=== PATIENT | male | born 1950 | race Caucasian/White ===

== ENCOUNTER → 2021-10-13 | Outpatient (CLI) | payer BC, OTHER ==
[~2021-10-13] MED LIST: AMLO1TAB24 PO; ATEN50TA2 PO; CYAN500T14 PO; D 50CAP2 PO; GLUC1CAP10 PO; GNP1000C11 PO; LOSA50TA28 PO; NEXI20CA PO; POTA-149 PO; VITA100065 PO
[2021-10-13 13:22] LABS: BASO # 0.1 10^3/uL (0.0-0.2); BASO % 1.9 % (0.0-1.0); EOS # 0.3 10^3/uL (0.0-0.5); EOS % 3.4 % (0.0-3.0); HEMATOCRIT 34.5 % (42.0-52.0); HEMOGLOBIN 10.5 g/dl (13.5-17.5); LYMPH # 1.6 10^3/uL (1.5-5.0); LYMPH % 21.2 % (24.0-44.0); MEAN CORPUSCULAR HEMOGLOBIN 28.6 pg (27.0-33.0); MEAN CORPUSCULAR HGB CONC 30.4 g/dl (32.0-36.5); MONO # 0.5 10^3/uL (0.0-0.8); MONO % 7.3 % (2.0-8.0); NEUTROPHILS # 4.7 10^3/uL (1.5-8.5); NEUTROPHILS % 64.3 % (36.0-66.0); PLATELET COUNT, AUTOMATED 106 10^3/uL (150-450); RED BLOOD COUNT 3.67 10^6/uL (4.30-6.10); WHITE BLOOD COUNT 7.3 10^3/uL (4.0-10.0)
[2021-10-13 14:17] LABS: ALBUMIN 3.7 GM/DL (3.2-5.2); ALT/SGPT 56 U/L (12-78); BILIRUBIN,TOTAL 0.4 MG/DL (0.2-1.0); BLOOD UREA NITROGEN 20 MG/DL (7-18); C REACTIVE PROTEIN QUANTITATIV 1.14 MG/DL (0.00-0.30); CALCIUM LEVEL 8.7 MG/DL (8.8-10.2); CARBON DIOXIDE LEVEL 29 MEQ/L (21-32); CHLORIDE LEVEL 108 MEQ/L (98-107); CREATININE FOR GFR 0.97 MG/DL (0.70-1.30); FOLATE 14.3 NG/ML (>5.4); FREE T4 0.88 NG/DL (0.76-1.46); GLOMERULAR FILTRATION RATE > 60.0 (>42); GLUCOSE, FASTING 96 MG/DL (70-100); HEPATITIS B SURFACE ANTIBODY NEGATIVE (POSITIVE); LDH LACTATE DEHYDROGENASE 400 U/L (87-241); SODIUM LEVEL 142 MEQ/L (136-145); TOTAL PROTEIN 6.9 GM/DL (6.4-8.2); VITAMIN B12 LEVEL 920 PG/ML (247-911)
[2021-10-13 14:41] LABS: HEPATITIS C VIRUS ABY INDEX 0.2 INDEX (<0.8); HIV 1&2 SCREEN CENTAUR NEGATIVE (NEGATIVE)
[2021-10-14 13:11] LABS: ALBUMIN 3.95 GM/DL (3.29-5.55); ALBUMIN % 57.2 % (55.8-66.1); ALPHA-1-GLOBULIN % 5.1 % (2.9-4.9); ALPHA-1-GLOBULINS 0.35 GM/DL (0.17-0.41); ALPHA-2-GLOBULINS 0.84 GM/DL (0.42-0.99); ALPHA-2-GLOBULINS % 12.2 % (7.1-11.8); BETA-1-GLOBULINS 0.41 GM/DL (0.28-0.60); BETA-2-GLOBULINS 0.39 GM/DL (0.19-0.55); BETA-2-GLOBULINS % 5.6 % (3.2-6.5); GAMMA GLOBULIN % 13.9 % (11.1-18.8); GAMMA GLOBULINS 0.96 GM/DL (0.65-1.58)
[2021-10-14 18:19] LABS: FREE KAPPA LIGHT CHAINS SERUM 24.1 mg/L (3.3-19.4); FREE LAMBDA LIGHT CHAINS SERUM 19.4 mg/L (5.7-26.3); KAPPA/LAMBDA RATIO SERUM 1.24 (0.26-1.65)
== END ==
LOC: M PLALAB 09:16
PROVIDERS: ATTEND Internal Medicine Hematology
DX: D61.89 Other specified aplastic anemias and other bone marrow failure syndromes (principal); D69.6 Thrombocytopenia, unspecified; E78.1 Pure hyperglyceridemia

== ENCOUNTER → 2021-11-12 | Outpatient (CLI) | payer OTHER ==
[~2021-11-12] MED LIST changes: +LIDOCAINE 1% MDV 20ML VIAL As Ordered ONE
[2021-11-12 10:32] LABS: BASO # 0.1 10^3/uL (0.0-0.2); BASO % 1.7 % (0.0-1.0); EOS # 0.3 10^3/uL (0.0-0.5); EOS % 3.8 % (0.0-3.0); HEMATOCRIT 30.5 % (42.0-52.0); HEMOGLOBIN 9.9 g/dl (13.5-17.5); LYMPH # 1.6 10^3/uL (1.5-5.0); LYMPH % 22.5 % (24.0-44.0); MEAN CORPUSCULAR HEMOGLOBIN 29.6 pg (27.0-33.0); MEAN CORPUSCULAR HGB CONC 32.5 g/dl (32.0-36.5); MONO # 0.5 10^3/uL (0.0-0.8); MONO % 7.5 % (2.0-8.0); NEUTROPHILS # 4.5 10^3/uL (1.5-8.5); NEUTROPHILS % 62.6 % (36.0-66.0); PLATELET COUNT, AUTOMATED 102 10^3/uL (150-450); RED BLOOD COUNT 3.35 10^6/uL (4.30-6.10); WHITE BLOOD COUNT 7.2 10^3/uL (4.0-10.0)
[2021-11-12 11:35] VITALS: BP 140/79
== END ==
LOC: M IRPRO 09:57
PROVIDERS: ATTEND Internal Medicine Hematology
DX: M79.18 Myalgia, other site (principal)

== ENCOUNTER → 2022-01-05 | Outpatient (CLI) | payer BC, MEDICARE ==
[~2022-01-05] MED LIST changes: +FENO67CA; -LIDOCAINE 1% MDV 20ML VIAL As Ordered ONE
== END ==
LOC: M RAD 07:20
PROVIDERS: ATTEND Internal Medicine Medical Oncology
DX: D47.1 Chronic myeloproliferative disease (principal); R16.1 Splenomegaly, not elsewhere classified

== ENCOUNTER → 2022-01-13 | Outpatient (CLI) | payer MEDICARE, BC | LOC: M CARPUL 07:15 | PROVIDERS: ATTEND Nurse Practitioner | DX: D64.9 Anemia, unspecified (principal); D75.81 Myelofibrosis; R06.09 Other forms of dyspnea ==

== ENCOUNTER 2024-04-13 10:03 | Emergency (ER) | payer MEDICARE ==
[~2024-04-13] VITALS: Ht 188 cm; Wt 89.8 kg
[~2024-04-13 10:03] MED LIST changes: +GNP250TA9 PO
[2024-04-13 10:56] LABS: BASO % 0.4 % (0.0-1.0); EOS # 0.2 10^3/uL (0.0-0.5); EOS % 4.9 % (0.0-3.0); HEMATOCRIT 32.4 % (42.0-52.0); HEMOGLOBIN 10.1 g/dl (13.5-17.5); LYMPH # 1.4 10^3/uL (1.5-5.0); LYMPH % 27.6 % (24.0-44.0); MEAN CORPUSCULAR HEMOGLOBIN 29.3 pg (27.0-33.0); MEAN CORPUSCULAR HGB CONC 31.2 g/dl (32.0-36.5); MEAN CORPUSCULAR VOLUME 93.9 fl (80.0-96.0); MONO # 0.5 10^3/uL (0.0-0.8); MONO % 9.6 % (2.0-8.0); NEUTROPHILS # 2.8 10^3/uL (1.5-8.5); NEUTROPHILS % 57.3 % (36.0-66.0); PLATELET COUNT, AUTOMATED 148 10^3/uL (150-450); RED BLOOD COUNT 3.45 10^6/uL (4.30-6.10); WHITE BLOOD COUNT 4.9 10^3/uL (4.0-10.0)
[2024-04-13 11:27] LABS: ALBUMIN 3.2 G/DL (3.2-5.2); ALKALINE PHOSPHATASE 481 U/L (46-116); ALT/SGPT 69 U/L (7.0-40); AST/SGOT 42 U/L (<34); BILIRUBIN,DIRECT 0.3 MG/DL (<0.4); BILIRUBIN,TOTAL 0.8 MG/DL (0.3-1.2); BLOOD UREA NITROGEN 22 MG/DL (9-23); CALCIUM LEVEL 8.9 MG/DL (8.3-10.6); CARBON DIOXIDE LEVEL 26 MMOL/L (20-31); CHLORIDE LEVEL 104 MMOL/L (98-107); CREATININE FOR GFR 0.77 MG/DL (0.70-1.30); GLOMERULAR FILTRATION RATE > 60.0 (>42); GLUCOSE, FASTING 113 MG/DL (74-106); POTASSIUM SERUM 4.2 MMOL/L (3.5-5.1); SODIUM LEVEL 135 MMOL/L (136-145); TOTAL PROTEIN 6.3 G/DL (5.7-8.2)
[2024-04-13] MEDS ORDERED: ISOVUE-370 76% 100ML VIAL As Ordered ONE (11:42)
[2024-04-13 11:50] LABS: CPK CREATINE PHOSPHOKINASE < 15 U/L (46-171)
[2024-04-13 11:55] LABS: CK-MB VALUE MASS < 1.0 NG/ML (<3.6)
[2024-04-13] MEDS ORDERED: FAMO1TAB11 (11:59)
[2024-04-13] MEDS ORDERED: ATOR1TAB21 (11:59)
[2024-04-13] MEDS ORDERED: SULF400T14 (11:59)
[2024-04-13] MEDS ORDERED: LOSA50TA28 (11:59)
[2024-04-13] MEDS ORDERED: BUDE3CAP (11:59)
[2024-04-13] MEDS ORDERED: URSO300C3 (11:59)
[2024-04-13] MEDS ORDERED: ACYC1TAB (11:59)
[2024-04-13 12:26] LABS: CK-MB VALUE MASS < 1.0 NG/ML (<3.6)
[2024-04-13 12:28] LABS: CPK CREATINE PHOSPHOKINASE 20 U/L (46-171)
[2024-04-13] MEDS ORDERED: cefTRIAXone SOD 1 GM in D5W MINI-BAG PLUS 50 ML IV ONE (13:40)
[2024-04-13] MEDS ORDERED: DOXYCYCLINE HYCLATE 100 MG in D5W MINI-BAG PLUS 100 ML IV ONE (13:40)
[2024-04-13] MEDS ORDERED: CEFD1CAP9 PO (13:58)
[2024-04-13 14:34] VITALS: BP 132/64; TEMP 98.4; O2SAT 96
== END 2024-04-13 14:37 | disposition left against medical advice (07) ==
LOC: M ED 10:03
DX: R06.02 Shortness of breath (principal); J18.9 Pneumonia, unspecified organism; I45.10 Unspecified right bundle-branch block; I10 Essential (primary) hypertension; Z87.891 Personal history of nicotine dependence; Z79.2 Long term (current) use of antibiotics; Z79.899 Other long term (current) drug therapy; Z53.9 Procedure and treatment not carried out, unspecified reason
CPT/HCPCS: 71045; 71275; 80048; 80076; 82550; 82553; 83605; 83880; 84484; 85025; 86850; 86900; 86901; 87040; 87486; 87581; 87633; 87798; 93005; 93041; 94760; 96374; 99285; Q9967

== ENCOUNTER 2024-09-05 14:04 | Outpatient (RCR) | payer MEDICARE ==
[2021-12-15 14:15] VITALS: BP 131/78; O2SAT 99
[2021-12-15 15:36] LABS: BASO # 0.1 10^3/uL (0.0-0.2); BASO % 1.6 % (0.0-1.0); EOS # 0.3 10^3/uL (0.0-0.5); EOS % 3.4 % (0.0-3.0); HEMATOCRIT 32.4 % (42.0-52.0); HEMOGLOBIN 10.5 g/dl (13.5-17.5); LYMPH # 1.7 10^3/uL (1.5-5.0); LYMPH % 21.9 % (24.0-44.0); MEAN CORPUSCULAR HGB CONC 32.4 g/dl (32.0-36.5); MEAN CORPUSCULAR VOLUME 92.6 fl (80.0-96.0); MONO # 0.6 10^3/uL (0.0-0.8); MONO % 7.2 % (2.0-8.0); NEUTROPHILS # 4.8 10^3/uL (1.5-8.5); NEUTROPHILS % 62.8 % (36.0-66.0); WHITE BLOOD COUNT 7.7 10^3/uL (4.0-10.0)
[2021-12-15 15:37] LABS: PLATELET COUNT, AUTOMATED 99 10^3/uL (150-450)
[2021-12-15 16:03] LABS: ALKALINE PHOSPHATASE 89 U/L (45-117); ALT/SGPT 49 U/L (12-78); AST/SGOT 29 U/L (7-37); BILIRUBIN,TOTAL 0.5 MG/DL (0.2-1.0); BLOOD UREA NITROGEN 24 MG/DL (7-18); CALCIUM LEVEL 8.9 MG/DL (8.8-10.2); CARBON DIOXIDE LEVEL 29 MEQ/L (21-32); CHLORIDE LEVEL 107 MEQ/L (98-107); CREATININE FOR GFR 1.18 MG/DL (0.70-1.30); FERRITIN 899 NG/ML (26-388); GLOMERULAR FILTRATION RATE > 60.0 (>42); GLUCOSE, FASTING 94 MG/DL (70-100); IRON (FE) 124 UG/DL (65-175); LDH LACTATE DEHYDROGENASE 452 U/L (87-241); PERCENT SATURATION 42.2 % (19.7-50.0); POTASSIUM SERUM 3.9 MEQ/L (3.5-5.1); SODIUM LEVEL 141 MEQ/L (136-145); TOTAL IRON BINDING CAPACITY 294 UG/DL (250-450); TOTAL PROTEIN 7.4 GM/DL (6.4-8.2)
[2021-12-15 16:10] LABS: FOLATE 9.9 NG/ML (>5.4); VITAMIN B12 LEVEL 898 PG/ML (247-911)
[2021-12-19 17:08] LABS: ANTINUCLEAR ANTIBODIES DIRECT Negative (Negative); ERYTHROPOIETIN 56.3 mIU/mL (2.6-18.5); HAPTOGLOBIN 180 mg/dL (34-355); SOLUBLE TRANSFERRIN RECEPTOR 30.2 nmol/L (12.2-27.3)
[2022-01-07 11:26] VITALS: BP 135/82; O2SAT 98
[2023-10-21 15:46] VITALS: BP 131/79; O2SAT 99
[2024-02-13 11:12] VITALS: BP 124/78; O2SAT 97
[2024-02-29] MEDS: diphenhydrAMINE (25MG CAP) 25MG PO X 1 PO ONE (10:26)
[2024-02-29] MEDS: ACETAMINOPHEN PO ONE (10:26)
[2024-02-29 10:44] VITALS: BP 157/82; TEMP 97.6; O2SAT 97
[2024-02-29 11:00] VITALS: BP 150/78; TEMP 97.5; O2SAT 100
[2024-02-29 11:40] VITALS: BP 133/74; TEMP 97; O2SAT 98
[2024-02-29 12:50] VITALS: BP 156/90; TEMP 97.7; O2SAT 99
[~2024-09-05] VITALS: Ht 188 cm; Wt 82.4 kg
[~2024-09-05 14:04] MED LIST changes: +ACYC-438; +ATOR1TAB21; +BUDE3CAP; +CEFD1CAP9 PO; +FAMO1TAB11; +LOSA50TA28; +SULF400T14; +URSO300C3
[2024-09-05 14:20] VITALS: BP 120/73; O2SAT 97
[2024-09-05] MEDS ORDERED: LOSA100T46 (14:37)
[2024-09-05] MEDS ORDERED: MELA1LIQ2 PO (14:37)
[2024-09-05] MEDS ORDERED: PRED5TA (14:37)
[2024-09-05] MEDS ORDERED: LOPE1CAP5 PO (14:37)
[2024-09-05] MEDS ORDERED: ONDA-282 (14:37)
[2024-09-05] MEDS ORDERED: ATOV5SUS (14:37)
[2024-09-05] MEDS ORDERED: POSA100T (14:37)
[2024-09-05] MEDS ORDERED: PANT40TA29 (14:37)
[2024-09-05] MEDS ORDERED: PROM50TA28 PO (14:37)
[2024-09-05] MEDS ORDERED: VITA200031 PO (14:37)
[2024-09-05] MEDS ORDERED: MONT10TA97 (14:37)
[2024-09-05] MEDS ORDERED: POTA-151 (14:37)
[2024-09-05] MEDS ORDERED: COLA100C5 PO (14:37)
[2024-09-05] MEDS ORDERED: MIRA3350 PO (14:37)
== END 2024-11-26 | disposition expired ==
LOC: M ONCM 11-26
PROVIDERS: ATTEND Internal Medicine Medical Oncology
DX: D47.1 Chronic myeloproliferative disease (principal); Z79.899 Other long term (current) drug therapy; Z94.6 Bone transplant status; Z87.891 Personal history of nicotine dependence
CPT/HCPCS: 36415; 36430; 80053; 82607; 82668; 82728; 82746; 83010; 83520; 83550; 83615; 85025; 85046; 85049; 85055; 86038; 86850; 86900; 86901; 86920; G0463; P9040